=== PATIENT | male | born 1950 | race African-American/Black ===

== ENCOUNTER 2019-10-18 07:39 | Observation (INO) ==
[2019-10-18] MEDS ORDERED: KETOROLAC 30 MG/1 ML VIAL IV STA (07:56)
[2019-10-18] MEDS ORDERED: ALBUTEROL/IPRATROPIUM 3 ML NEB RESP TX STA (07:56)
[2019-10-18] MEDS ORDERED: ASPIRIN 325 MG TABLET PO STA (07:56)
[2019-10-18] MEDS ORDERED: methylPREDNISolone SOD SUC 125 MG/2 ML VIAL IV STA (07:56)
[2019-10-18 08:23] LABS: Basophils # 0.1 10*3/uL (0.0-0.2); Basophils % 0.7 % (0.0-0.8); Eosinophils # 0.2 10*3/uL (0.0-0.87); Eosinophils % 2.1 % (0.00-10.9); Hemoglobin 9.5 GM/DL (14.0-18.0); Immature Granulocytes % 0.6 %; Immature Granulocytes Absolute 0.06 #; Lymphocytes # 2.1 10*3/uL (1.4-4.0); Lymphocytes % 22.1 % (21.2-54.2); Mean Corpuscular HGB Conc 31.7 GM/DL (32-36); Mean Corpuscular Volume 81.1 FL (87-102); Mean Platelet Volume 10.3 FL (9.6-12.0); Monocytes % 12.7 % (1.7-12.7); Neutrophils % 61.8 % (38.7-73.9); Platelet Count 361 T/CUMM (130-400); Red Cell Distribution Width 15.4 % (9.3-17.3); White Blood Count 9.5 T/CUMM (4-12)
[2019-10-18 08:33] LABS: INR 1.1; PT Patient Result 11.3 SECS (9.8-11.9); Partial Thromboplastin Time 30.5 SECS (23.9-33.8)
[2019-10-18 08:45] LABS: Albumin 2.8 G/DL (3.4-5.0); Bilirubin,Total 0.8 MG/DL (0.2-1.0); Calcium 9.1 MG/DL (8.5-10.1); Ferritin 377.1 ng/ml (26-388); Osmolality,Calculated 263.5 MOS/KG (273-304); Total Protein 7.9 G/DL (6.4-8.3)
[2019-10-18] MEDS ORDERED: cefTRIAXone 1,000 MG in SODIUM CHLORIDE 0.9% 100 ML IV STA (09:05)
[2019-10-18] MEDS ORDERED: AZITHROMYCIN INJ 500 MG in SODIUM CHLORIDE 0.9% 250 ML IV STA (09:05)
[2019-10-18] MEDS ORDERED: cefTRIAXone 1,000 MG in SYRINGE 1 EACH IV STA (09:14)
[2019-10-18] MEDS ORDERED: ACETAMINOPHEN 325 MG TABLET PO PRN (11:10)
[2019-10-18] MEDS ORDERED: DEXTROSE 10% 250 ML BAG IV PRN (11:10)
[2019-10-18] MEDS ORDERED: GLUCAGON 1 MG VIAL IM PRN (11:10)
[2019-10-18] MEDS ORDERED: ONDANSETRON 4 MG/2 ML VIAL IV PRN (11:10)
[2019-10-18 20:17] LABS: Apearance,Urine CLEAR (Clear); Bilirubin,Urine Negative (Negative); Blood, Urine Negative (Negative); Glucose,Urine (UA) >=500 mg/dL (Negative); Ketones,Urine 20 mg/dL (Negative); Mucus,Urine Occasional /LPF (Occasional); Nitrite,Urine Negative (Negative); Protein,Urine Negative; RBC,Urine 4 /HPF (0-4); Squamous Epithelial Cell,Urine Occasional /HPF (0-10); Urine Specific Gravity 1.055 (1.001-1.035); WBC,Urine 1 /HPF (0-6)
[2019-10-18 20:18] LABS: Urine Color Dark yellow (Yellow)
[2019-10-19 03:04] LABS: Basophils % 0.1 % (0.0-0.8); Hematocrit 28.6 VOL% (42.0-52.0); Immature Granulocytes % 0.7 %; Immature Granulocytes Absolute 0.09 #; Lymphocytes # 1.8 10*3/uL (1.4-4.0); Lymphocytes % 13.3 % (21.2-54.2); Mean Corpuscular HGB Conc 31.5 GM/DL (32-36); Mean Corpuscular Volume 80.6 FL (87-102); Mean Platelet Volume 10.8 FL (9.6-12.0); Monocytes % 10.5 % (1.7-12.7); Neutrophils % 75.4 % (38.7-73.9); Platelet Count 381 T/CUMM (130-400); Red Blood Count 3.55 MC/CUMM (3.8-5.5); Red Cell Distribution Width 15.1 % (9.3-17.3); White Blood Count 13.7 T/CUMM (4-12)
[2019-10-19 03:18] LABS: Calcium 9.4 MG/DL (8.5-10.1); Osmolality,Calculated 272.4 MOS/KG (273-304)
[2019-10-19] MEDS ORDERED: MIDAZOLAM 2 MG/2 ML VIAL IV ONE (12:08)
[2019-10-19] MEDS ORDERED: fentaNYL 100 MCG/2 ML VIAL IV ONE (12:08)
[2019-10-19] MEDS ORDERED: MIDAZOLAM 2 MG/2 ML VIAL ONE (12:28)
[2019-10-19] MEDS ORDERED: fentaNYL 100 MCG/2 ML VIAL ONE (12:28)
[2019-10-19 16:00] VITALS: BP 126/6
== END 2019-10-19 16:18 | disposition home or self-care (01) ==
LOC: N.ED 07:39 → N.EDINP 07:39 → N.TELES 11:34
PROVIDERS: ADMIT Internal Medicine Geriatric Medicine; ATTEND Internal Medicine Geriatric Medicine

== ENCOUNTER 2020-09-15 14:02 | Observation (INO) ==
[2020-09-15] MEDS ORDERED: SODIUM CHLORIDE 0.9% 1,000 ML IV STA ×2 (14:20→16:21)
[2020-09-15 14:27] LABS: Basophils % 0.7 % (0.0-0.8); Eosinophils # 0.1 10*3/uL (0.0-0.87); Eosinophils % 2.6 % (0.00-10.9); Hematocrit 38.2 VOL% (42.0-52.0); Hemoglobin 12.2 GM/DL (14.0-18.0); Immature Granulocytes % 0.7 %; Immature Granulocytes Absolute 0.03 #; Lymphocytes # 0.8 10*3/uL (1.4-4.0); Lymphocytes % 19.1 % (21.2-54.2); Mean Corpuscular HGB Conc 31.9 GM/DL (32-36); Mean Corpuscular Volume 92.7 FL (87-102); Mean Platelet Volume 10.8 FL (9.6-12.0); Monocytes % 32.5 % (1.7-12.7); Neutrophils % 44.4 % (38.7-73.9); Platelet Count 280 T/CUMM (130-400); Red Blood Count 4.12 MC/CUMM (3.8-5.5); Red Cell Distribution Width 14.7 % (9.3-17.3); White Blood Count 4.2 T/CUMM (4-12)
[2020-09-15 14:49] LABS: Albumin 2.9 G/DL (3.4-5.0); Calcium 8.8 MG/DL (8.5-10.1); Osmolality,Calculated 282.2 MOS/KG (273-304); Potassium 5.1 MMOL/L (3.5-5.1); Total Protein 7.2 G/DL (6.4-8.2)
[2020-09-15 14:59] LABS: Band Neutrophils 3 % (0-10); Eosinophils 2 % (0-10); Lymphocytes 12 % (20-55); Segmented Neutrophils 56 % (50-85); Total Cells Counted 100
[2020-09-15 15:01] LABS: Platelet Estimate Adequate
[2020-09-15 15:02] LABS: Polychromasia Few
[2020-09-15 15:03] LABS: Anisocytosis Slight; Macrocytosis Slight
[2020-09-15] MEDS ORDERED: HYDROmorphone 2 MG/1 ML VIAL IV STA (15:41)
[2020-09-15] MEDS ORDERED: HYDROmorphone 2 MG/1 ML VIAL ONE (15:41)
[2020-09-15] MEDS ORDERED: ONDANSETRON 4 MG/2 ML VIAL ONE (15:41)
[2020-09-15] MEDS ORDERED: ONDANSETRON 4 MG/2 ML VIAL IV STA (15:42)
[2020-09-15] MEDS ORDERED: DEXTROSE 50% 25 GM/50 ML VIAL IV PRN (17:27)
[2020-09-15] MEDS ORDERED: ONDANSETRON 4 MG/2 ML VIAL IV PRN (17:27)
[2020-09-15] MEDS ORDERED: GLUCAGON 1 MG VIAL IM PRN (17:27)
[2020-09-15] MEDS ORDERED: ACETAMINOPHEN 325 MG TABLET PO PRN (17:27)
[2020-09-15 18:04] LABS: Risk Ratio 4.44; Thyroid Stimulating Hormone 2.94 uIU/ml (0.358-3.74); VLDL CHOLESTEROL 36.4 MG/DL
[2020-09-15] MEDS: ENOXAPARIN 40 MG/0.4 ML SYRINGE SUBCUT SCH (18:09)
[2020-09-15 18:23] LABS: Bacteria,Urine Occasional /HPF (Few); Bilirubin,Urine Negative (Negative); Blood, Urine Small mg/dL (Negative); Glucose,Urine (UA) Negative (Negative); Hyaline Casts,Urine 98 /LPF (0-3); Ketones,Urine 5 mg/dL (Negative); Mucus,Urine Occasional /LPF (Occasional); Nitrite,Urine Negative (Negative); Protein,Urine Negative; RBC,Urine 29 /HPF (0-4); Squamous Epithelial Cell,Urine Occasional /HPF (0-10); Urine Appearance CLEAR (Clear); Urine Color Amber (Yellow); Urine Specific Gravity 1.019 (1.001-1.035)
[2020-09-15] MEDS: SODIUM CHLORIDE 0.9% 1,000 ML IV SCH (20:07)
[2020-09-15] MEDS: DOCUSATE SODIUM 100 MG CAPSULE PO SCH (21:39)
[2020-09-16 04:49] LABS: Basophils % 0.5 % (0.0-0.8); Eosinophils # 0.1 10*3/uL (0.0-0.87); Eosinophils % 1.9 % (0.00-10.9); Hematocrit 34.6 VOL% (42.0-52.0); Immature Granulocytes % 0.5 %; Immature Granulocytes Absolute 0.02 #; Lymphocytes # 0.7 10*3/uL (1.4-4.0); Mean Corpuscular HGB Conc 31.8 GM/DL (32-36); Mean Corpuscular Volume 93.5 FL (87-102); Mean Platelet Volume 10.7 FL (9.6-12.0); Monocytes % 26.2 % (1.7-12.7); Neutrophils % 54.9 % (38.7-73.9); Platelet Count 240 T/CUMM (130-400); White Blood Count 4.2 T/CUMM (4-12)
[2020-09-16 05:12] LABS: Calcium 8.3 MG/DL (8.5-10.1); Osmolality,Calculated 286.7 MOS/KG (273-304); Potassium 4.6 MMOL/L (3.5-5.1)
[2020-09-16 06:44] LABS: Lymphocytes 17 % (20-55); Segmented Neutrophils 56 % (50-85); Total Cells Counted 100
[2020-09-16 06:45] LABS: Platelet Estimate Normal
[2020-09-16 06:47] LABS: Eosinophils 2 % (0-10)
[2020-09-16] MEDS: DOCUSATE SODIUM 100 MG CAPSULE PO SCH ×2 (09:57→20:53)
[2020-09-16] MEDS: SODIUM CHLORIDE 0.9% 1,000 ML IV SCH ×2 (09:58→19:27)
[2020-09-16] MEDS: ENOXAPARIN 40 MG/0.4 ML SYRINGE SUBCUT SCH (18:00)
[2020-09-17] MEDS: SODIUM CHLORIDE 0.9% 1,000 ML IV SCH ×3 (04:44→14:04)
[2020-09-17 05:52] LABS: Basophils % 0.5 % (0.0-0.8); Eosinophils % 0.6 % (0.00-10.9); Hematocrit 35.2 VOL% (42.0-52.0); Hemoglobin 11.2 GM/DL (14.0-18.0); Immature Granulocytes % 1.3 %; Immature Granulocytes Absolute 0.08 #; Lymphocytes # 0.6 10*3/uL (1.4-4.0); Lymphocytes % 10.3 % (21.2-54.2); Mean Corpuscular HGB Conc 31.8 GM/DL (32-36); Mean Corpuscular Volume 92.9 FL (87-102); Mean Platelet Volume 10.4 FL (9.6-12.0); Monocytes % 20.7 % (1.7-12.7); Neutrophils % 66.6 % (38.7-73.9); Platelet Count 244 T/CUMM (130-400); Red Blood Count 3.79 MC/CUMM (3.8-5.5); Red Cell Distribution Width 15.1 % (9.3-17.3); White Blood Count 6.2 T/CUMM (4-12)
[2020-09-17 06:09] LABS: Calcium 8.3 MG/DL (8.5-10.1); Osmolality,Calculated 281.5 MOS/KG (273-304); Potassium 4.5 MMOL/L (3.5-5.1)
[2020-09-17 06:49] LABS: Band Neutrophils 3 % (0-10); Eosinophils 1 % (0-10); Lymphocytes 8 % (20-55); Segmented Neutrophils 71 % (50-85); Total Cells Counted 100
[2020-09-17 06:50] LABS: Microcytosis 1+; Polychromasia Slight
[2020-09-17 06:51] LABS: Platelet Estimate Normal; Tear Drop Cells Slight
[2020-09-17] MEDS: DOCUSATE SODIUM 100 MG CAPSULE PO SCH ×2 (07:50→10:45)
[2020-09-17] MEDS ORDERED: fentaNYL 50 MCG/HR PATCH TRANSDERM SCH (12:00)
[2020-09-17 12:40] VITALS: BP 91/63
== END 2020-09-17 14:42 | disposition home health service (06) ==
LOC: N.EDINP 14:02 → N.ED 14:02 → N.4E 17:52
PROVIDERS: ADMIT Internal Medicine; ATTEND Internal Medicine